=== PATIENT | male | born 1970 | race Caucasian/White ===

== ENCOUNTER 2016-07-22 08:42 | Observation (INO) | payer OTHER ==
[~2016-07-22] VITALS: Ht 175.3 cm; Wt 85.0 kg
[~2016-07-22 08:42] MED LIST: GABA600T PO; TRAZ100 PO
[2016-07-22 08:44] VITALS: BP 163/70; PULSE 78; RESP 17; TEMP 97.8; O2SAT 97
[2016-07-22] MEDS ORDERED: LISI40TA PO (10:18)
[2016-07-22] MEDS ORDERED: TRAZ300T2 PO (10:18)
[2016-07-22] MEDS ORDERED: BLOOD PRESSURE PO (10:18)
--- NOTE | 2016-07-22 10:20 | PD ---
HPI Chief Complaint: Abdominal Pain Time Seen by Provider: 10:13 Travel History International Travel<30 days: No Contact w/Intl Traveler<30days: No Traveled to known affect area: No History of Present Illness HPI This is a 46-year-old male who presents to the emergency department having woken up with lower abdominal burning described as constant, moderate severity, with no worsening or alleviating factors. He denies any associated vomiting, nausea, fevers, chills, dysuria, hematuria or diarrhea. He's never had pain like this before. He is otherwise pretty healthy. [facility] Past Medical History Narrative Medical Hypertension Hyperlipidemia Cardiovascular Problems: Yes Diminished Hearing: No Gout: Yes (L TOE) Hypertension: Yes Insomnia: Yes Immunizations Current: Yes Tetanus Vaccination: < 5 Years Influenza Vaccination: Yes Past Surgical History Other Surgery: Yes (HEMORRHOIDS) Family History Family Myocardial Infarction: Yes Social History Alcohol Use: Yes (OCCASIONAL) Tobacco Use: Yes (1/2 PPD) Substance Use: No Allergies-Medications (Allergen,Severity, Reaction): Coded Allergies: No Known Allergies (Verified , 12/23/14) Reported Meds & Prescriptions Reported Meds & Active Scripts Active Reported [Blood Pressure] 20 Mg PO DAILY Lisinopril 40 Mg Tab 40 Mg PO DAILY Trazodone (Trazodone HCl) 300 Mg Tab 300 Mg PO HS Physical Exam Narrative GENERAL:Well appearing, no acute distress SKIN: Warm and dry. HEAD: Atraumatic. Normocephalic. EYES: Pupils equal and round. No injection or drainage. ENT: Moist mucous membranes NECK: Trachea midline. CARDIOVASCULAR: Regular rate and rhythm. No murmur appreciated. RESPIRATORY: Clear to auscultation. Breath sounds equal bilaterally. GASTROINTESTINAL: Abdomen soft, tender to palpation in the suprapubic region and left lower quadrants with no rebound or guarding. MUSCULOSKELETAL: No obvious deformities. NEUROLOGICAL: Awake and alert. No obvious cranial nerve deficits. Moving all extremities. PSYCHIATRIC: Appropriate mood and affect; insight and judgment normal. Data Data Last Documented VS Vital Signs Date Time Temp Pulse Resp B/P Pulse Ox O2 Delivery O2 Flow Rate FiO2 07/22/16 13:47 68 20 131/61 97 07/22/16 08:44 97.8 Orders Complete Blood Count With Diff (07/22/16 10:18) Comprehensive Metabolic Panel (07/22/16 10:18) Lipase (07/22/16 10:18) Urinalysis - C+S If Indicated (07/22/16 10:18) Iv Access Insert/Monitor (07/22/16 10:18) Ecg Monitoring (07/22/16 10:18) Oximetry (07/22/16 10:18) Sodium Chloride 0.9% Flush (Ns Flush) (07/22/16 10:30) Ct Abd/Pel W Iv Contrast(Rout) (07/22/16 ) Morphine Inj (Morphine Inj) (07/22/16 12:00) Iohexol 350 Inj (Omnipaque 350 Inj) (07/22/16 12:31) Piperacil-Tazo 3.375 Gm Premix (Zosyn 3. (07/22/16 13:15) Morphine Inj (Morphine Inj) (07/22/16 14:00) Admit Order (Ed Use Only) (07/22/16 13:51) Labs Laboratory Tests Test 07/22/16 07/22/16 10:40 11:20 White Blood Count 14.6 TH/MM3 Red Blood Count 5.22 MIL/MM3 Hemoglobin 14.5 GM/DL Hematocrit 43.2 % Mean Corpuscular Volume 82.9 FL Mean Corpuscular Hemoglobin 27.8 PG Mean Corpuscular Hemoglobin 33.5 % Concent Red Cell Distribution Width 14.6 % Platelet Count 275 TH/MM3 Mean Platelet Volume 9.1 FL Neutrophils (%) (Auto) 72.1 % Lymphocytes (%) (Auto) 19.4 % Monocytes (%) (Auto) 5.5 % Eosinophils (%) (Auto) 2.2 % Basophils (%) (Auto) 0.8 % Neutrophils # (Auto) 10.5 TH/MM3 Lymphocytes # (Auto) 2.8 TH/MM3 Monocytes # (Auto) 0.8 TH/MM3 Eosinophils # (Auto) 0.3 TH/MM3 Basophils # (Auto) 0.1 TH/MM3 CBC Comment DIFF FINAL Differential Comment Sodium Level 136 MEQ/L Potassium Level 4.6 MEQ/L Chloride Level 105 MEQ/L Carbon Dioxide Level 23.5 MEQ/L Anion Gap 8 MEQ/L Blood Urea Nitrogen 19 MG/DL Creatinine 0.93 MG/DL Estimat Glomerular Filtration 87 ML/MIN Rate Random Glucose 121 MG/DL Calcium Level 9.1 MG/DL Total Bilirubin 0.3 MG/DL Aspartate Amino Transf 20 U/L (AST/SGOT) Alanine Aminotransferase 24 U/L (ALT/SGPT) Alkaline Phosphatase 76 U/L Total Protein 7.4 GM/DL Albumin 3.8 GM/DL Lipase 154 U/L Urine Color YELLOW Urine Turbidity CLEAR Urine pH 7.0 Urine Specific Muse 1.018 Urine Protein NEG mg/dL Urine Glucose (UA) NEG mg/dL Urine Ketones NEG mg/dL Urine Occult Blood NEG Urine Nitrite NEG Urine Bilirubin NEG Urine Urobilinogen LESS THAN 2.0 MG/DL Urine Leukocyte Esterase NEG Urine WBC LESS THAN 1 /hpf Urine Mucus FEW /lpf Microscopic Urinalysis Comment CULT NOT INDICATED MDM Medical Decision Making Medical Screen Exam Complete: Yes Emergency Medical Condition: Yes Interpretation(s) Leukocytosis with 72% neutrophils Electrolytes are reassuring Lipase is normal Urinalysis: No infection Last 24 hours Impressions Abdomen/Pelvis CT 07/22/16 0000 Signed Impressions: Service Date/Time: June 12:12 - CONCLUSION: Mildly dilated distal appendix. The appearance could reflect early appendicitis. Correlation recommended. Bro Valentin MD Differential Diagnosis Appendicitis, diverticulitis, urinary tract infection, prostatitis Narrative Course This is a 46-year-old male who presents to the emergency department with burning in the lower abdomen. He otherwise is afebrile, has no vomiting and no diarrhea. He is tender in the lower abdomen worse in the suprapubic region. Labs were obtained which demonstrated a leukocytosis of 14. CT demonstrates a dilated appendix. I suspect the patient does have early appendicitis. Patient will be admitted to general surgery. He was given a dose of Zosyn. Physician Communication Physician Communication Discussed with Dr. Jon Diagnosis Primary Impression: Acute appendicitis Qualified Code: K35.80 - Acute appendicitis, unspecified acute appendicitis type Admitting Information Admitting Physician Requests: Observation Twila Valencia MD Jul 22, 2016 10:20
[2016-07-22] MEDS ORDERED: SODIUM CHLORIDE 0.9% FLUSH 10 ML FLUSH IV FLUSH PRN ×3 (10:30→17:45)
[2016-07-22 11:13] LABS: AUTOMATED NEUTROPHIL # 10.5 TH/MM3 (1.8-7.7); BASOPHIL # 0.1 TH/MM3 (0-0.2); BASOPHIL % 0.8 % (0.0-2.0); EOSINOPHIL # 0.3 TH/MM3 (0-0.4); EOSINOPHIL % 2.2 % (0.0-4.0); HEMATOCRIT 43.2 % (39.0-51.0); HEMO FLAGS DIFF FINAL; LYMPH % 19.4 % (9.0-44.0); LYMPHOCYTE # 2.8 TH/MM3 (1.0-4.8); MEAN CELL VOLUME 82.9 FL (80.0-100.0); MEAN CORPUSCULAR HEMOGLOBIN 27.8 PG (27.0-34.0); MEAN CORPUSCULAR HGB CONC 33.5 % (32.0-36.0); MONO % 5.5 % (0.0-8.0); NEUT % 72.1 % (16.0-70.0); PLATELET COUNT 275 TH/MM3 (150-450); RED BLOOD COUNT 5.22 MIL/MM3 (4.50-5.90); RED CELL DISTRIBUTION WIDTH 14.6 % (11.6-17.2); WHITE BLOOD COUNT 14.6 TH/MM3 (4.0-11.0)
[2016-07-22 11:36] LABS: ALKALINE PHOSPHATASE 76 U/L (45-117); ALT (GPT) 24 U/L (12-78); ANION GAP 8 MEQ/L (5-15); AST (GOT) 20 U/L (15-37); BICARBONATE 23.5 MEQ/L (21.0-32.0); BLOOD UREA NITROGEN 19 MG/DL (7-18); CHLORIDE 105 MEQ/L (98-107); GLOMERULAR FILTRATION RATE 87 ML/MIN (>89); SODIUM (NA) 136 MEQ/L (136-145); TOTAL BILIRUBIN ADULT 0.3 MG/DL (0.2-1.0)
[2016-07-22 11:37] LABS: BLOOD, URINE NEG (NEG); COMMENT (UR) CULT NOT INDICATED; CULTURE IF INDICATED CULT NOT INDICATED; GLUCOSE,URINE NEG (NEG); KETONE, URINE NEG (NEG); MUCUS URINE FEW /lpf (OCC); NITRITE,URINE NEG (NEG); URINE COLOR YELLOW (YELLW/STRAW)
[2016-07-22 11:39] LABS: POTASSIUM 4.6 MEQ/L (3.5-5.1)
[2016-07-22] MEDS ORDERED: PROPOFOL 200 MG/20 ML AMP IV ONE (12:00)
[2016-07-22] MEDS ORDERED: NEOSTIGMINE 3 MG/3 ML SYR IV ONE (12:00)
[2016-07-22] MEDS ORDERED: MORPHINE SULFATE 4 MG/ML INJ IV PUSH ONE ×2 (12:00→14:00)
[2016-07-22] MEDS ORDERED: IOHEXOL 350 MG/ML 10 ML VIAL (for RAD DIAG) IV ONE (12:31)
--- NOTE | 2016-07-22 13:08 | RADRPT ---
EXAM DATE/TIME: 07/22/2016 12:12 [place] COMPARISON: No previous studies available for comparison. INDICATIONS : Burning pain mid abdomen. IV CONTRAST: 75 cc Omnipaque 350 (iohexol) IV ORAL CONTRAST: No oral contrast ingested. RADIATION DOSE: 15.33 CTDIvol (mGy) MEDICAL HISTORY : Cardiovascular disease. Hypertension. hemorrhoids SURGICAL HISTORY : None. ENCOUNTER: Initial ACUITY: 1 day PAIN SCALE: 7/10 LOCATION: Abdomen TECHNIQUE: Volumetric scanning of the abdomen and pelvis was performed. Using automated exposure control and ad justment of the mA and/or kV according to patient size, radiation dose was kept as low as reasonably achievable to obtain optimal diagnostic quality images. FINDINGS: LOWER LUNGS: Mild posterior lung base atelectasis. LIVER: Homogeneous density without lesion. There is no dilation of the biliary tree. No calcified gallston es. SPLEEN: Normal size without lesion. PANCREAS: Within normal limits. KIDNEYS: Tiny lower pole left renal cysts. No evidence of suspicious mass, stone or hydronephrosis. ADRENAL GLANDS: Within normal limits. VASCULAR: There is no aortic aneurysm. BOWEL/MESENTERY: The appendix coils into the central pelvis. The distal appendix is dilated to slightly greater than 1 0 mm. There is no significant surrounding inflammatory change at present. The bowel is elsewhere unre markable. ABDOMINAL WALL: Within normal limits. RETROPERITONEUM: There is no lymphadenopathy. BLADDER: No wall thickening or mass. REPRODUCTIVE: Within normal limits. INGUINAL: There is no lymphadenopathy or hernia. MUSCULOSKELETAL: Within normal limits for patient age. CONCLUSION: Mildly dilated distal appendix. The appearance could reflect early appendicitis. Correlation recommen ded. Bro Valentin MD on July 22, 2016 at 13:00 Board Certified Radiologist. This report was verified electronically.
[2016-07-22] MEDS ORDERED: PIPERACIL-TAZO 3.375 GM PREMIX 50 ML IV ONE (13:15)
[2016-07-22 13:47] VITALS: BP 131/61; PULSE 68; RESP 20; O2SAT 97
[2016-07-22] MEDS ORDERED: SODIUM CHLOR 0.9% 1000 ML INJ 1,000 ML IV SCH (15:20)
[2016-07-22] MEDS ORDERED: BUPIVACAINE/EPINEPHRINE 0.5% PF 30 ML VIAL ONE (15:55)
[2016-07-22] MEDS ORDERED: ACETAMINOPHEN 1000 MG/100 ML VIAL IV ONE (16:25)
[2016-07-22] MEDS ORDERED: FAMOTIDINE 20 MG/2 ML VIAL ONE (16:25)
[2016-07-22] MEDS ORDERED: fentaNYL CITRATE 250 MCG/5 ML AMP ONE (16:25)
[2016-07-22] MEDS ORDERED: MIDAZOLAM HCL 2 MG/2 ML VIAL ONE (16:25)
[2016-07-22] MEDS: SODIUM CHLOR 0.9% 1000 ML INJ 1,000 ML IV SCH (17:37)
[2016-07-22] MEDS ORDERED: PERC5TAB12 PO (17:41)
[2016-07-22] MEDS ORDERED: Post-op Orders (for Pharmacy) MISC XX ONE (17:45)
[2016-07-22] MEDS ORDERED: ACETAMINOPHEN/HYDROcodone 325 MG/5 MG TAB PO PRN (17:45)
[2016-07-22] MEDS ORDERED: METOCLOPRAMIDE HCL 10 MG/2 ML VIAL IVS PRN (17:45)
[2016-07-22] MEDS ORDERED: ONDANSETRON HCL 4 MG/2 ML VIAL IV PRN (17:45)
[2016-07-22] MEDS ORDERED: *morphine SULFATE 8 MG/ML PERIprocedure ONLY ONE (18:20)
[2016-07-22] MEDS: NICOTINE 14 MG/24 HR PATCH TD SCH (19:36)
[2016-07-22] MEDS: MORPHINE SULFATE 4 MG/ML INJ IV PRN (19:36)
[2016-07-22] MEDS: SODIUM CHLORIDE 0.9% FLUSH 10 ML FLUSH IV FLUSH SCH (19:43)
[2016-07-22 20:15] VITALS: BP 139/69; PULSE 80; RESP 18; TEMP 95.9; O2SAT 97
[2016-07-22] MEDS ORDERED: SODIUM CHLORIDE 0.9% FLUSH 10 ML FLUSH IV FLUSH SCH (21:00)
[2016-07-22] MEDS ORDERED: REMOVE OLD NICODERM (NICOTINE) PATCH TD SCH (21:00)
[2016-07-22] MEDS ORDERED: traZODone HCL 100 MG TAB PO SCH (21:00)
[2016-07-23] MEDS: MORPHINE SULFATE 4 MG/ML INJ IV PRN (00:24)
[2016-07-23] MEDS: PIPERACIL-TAZO 3.375 GM PREMIX 50 ML IV SCH ×2 (00:24→06:28)
[2016-07-23 00:27] VITALS: BP 102/52; PULSE 59; RESP 17; TEMP 97; O2SAT 94
[2016-07-23] MEDS: SODIUM CHLOR 0.9% 1000 ML INJ 1,000 ML IV SCH (00:28)
[2016-07-23 00:32] VITALS: O2SAT 98
[2016-07-23] MEDS: ACETAMINOPHEN/HYDROcodone 325 MG/5 MG TAB PO PRN ×2 (04:15→08:12)
[2016-07-23 08:00] VITALS: BP 117/67; PULSE 55; RESP 17; TEMP 96.9; O2SAT 98
[2016-07-23] MEDS: NICOTINE 14 MG/24 HR PATCH TD SCH (08:15)
[2016-07-23] MEDS: SODIUM CHLORIDE 0.9% FLUSH 10 ML FLUSH IV FLUSH SCH (08:17)
[2016-07-23] MEDS ORDERED: LISINOPRIL 20 MG TAB PO SCH (09:00)
--- NOTE | 2016-07-23 09:32 | MH ---
cc: NIMA STARKS DATE OF ADMISSION 07/22/2016 DATE OF 1970 HISTORY This is a 46-year-old male who presented to the emergency room with a complaint of abdominal pain. The pain was located in the lower abdomen. No nausea or vomiting. No fevers or chills. No change in bowel movements. No urinary symptoms. PAST MEDICAL HISTORY The patient has a past medical history significant for: 1. Hyperlipidemia 2. Hypertension MEDICATIONS He is on medications at home that include: 1. Lisinopril 2. Unsure of his cholesterol medication 3. Trazodone PAST SURGICAL HISTORY Significant for hemorrhoidectomy. SOCIAL HISTORY He smokes a half-a-pack of cigarettes a day and drinks alcohol occasionally. FAMILY HISTORY Noncontributory ALLERGIES No known drug allergies. REVIEW OF SYSTEMS Significant for above. All other 10-point review negative. PHYSICAL EXAM On exam, the patient is the patient is laying on a stretcher in no acute distress. HEAD, EYES, EARS, NOSE, AND THROAT: His pupils are equal and reactive. Trachea is midline. NECK: Without JVD. RESPIRATORY: Clear. CARDIOVASCULAR: Regular. GASTROINTESTINAL: Soft, positive tenderness in the lower abdomen, greatest in the right lower quadrant. MUSCULOSKELETAL: No deformities. NEUROLOGIC: Nonfocal. LABORATORY DATA The patient's white blood cell count is 14.6. His CT scan of his abdomen and pelvis revealed a dilated appendix. ASSESSMENT This is a 46-year-old male with acute appendicitis. PLAN The plan will be to take him to the operating room for a laparoscopic appendectomy. The risks and benefits explained to include, but not be exclusive to infection, bleeding, bowel injury, bladder injury, ureter injury, technical aspects explained, as well as kasandra and postoperative course. The patient verbalized understanding and consent was obtained. MD JANICE Grissom/SHILPI /4:38 AM /9:24 AM
--- NOTE | 2016-07-26 22:18 | MP ---
cc: STEVE COLEMAN DATE OF SURGERY 07/22/2016 DATE OF 1970 PREOPERATIVE DIAGNOSIS Acute appendicitis. POSTOPERATIVE DIAGNOSIS Acute appendicitis. PROCEDURE Laparoscopic appendectomy. SURGEON Steve Coleman MD ANESTHESIA General endotracheal anesthesia. ESTIMATED BLOOD LOSS Scant. FINDINGS Inflamed appendix. SPECIMEN Appendix. COMPLICATIONS None. OPERATION The patient was brought to the operating room, placed on the operating table in supine position. Bilateral sequential inflation devices were placed on lower extremities. General anesthesia instituted. The abdomen was prepped and draped sterilely. A point in the infraumbilical area anesthetized with 0.25% Marcaine with epinephrine. Skin incision was made and a 5 mm Optivu port placed under direct vision and pneumoperitoneum created. On direct vision a 5 mm suprapubic port and a 12-mm left lower quadrant port were placed. Prior to placement of all ports the skin and peritoneum were anesthetized with 0.25% Marcaine with epinephrine. The patient was placed in Trendelenburg position right side up. The appendix was visualized and brought into view. The mesoappendix was using the harmonic scalpel. The appendix was then amputated at its base using an endovascular stapler. The appendix was retrieved from the peritoneal cavity in an Endopouch through the 12 mm port site. The pelvis was then irrigated with copious amounts of saline. The staple line was inspected, appeared to be intact. CO2 was released, all ports removed. All skin incisions were closed with 4-0 Monocryl. The abdominal wall was cleaned and a sterile dressing placed. The patient was awakened and taken to recovery room. MD JANICE Grissom/JOYCE /4:41 AM /10:14 PM
== END 2016-07-23 10:04 | disposition home or self-care (01) ==
LOC: NEPB 08:42 → NEDA 13:52 → N07B 19:25
PROVIDERS: ADMIT Surgery; ATTEND Surgery
DX: K35.80 Unspecified acute appendicitis (principal); E78.5 Hyperlipidemia, unspecified; I10 Essential (primary) hypertension; G47.00 Insomnia, unspecified; M10.9 Gout, unspecified; F17.210 Nicotine dependence, cigarettes, uncomplicated
CPT/HCPCS: 74177; 80053; 81001; 83690; 85025; 88304; 96374; 96375; G0378; J0131; J2250; J2270; J2543; J2710; J3010; J7030; Q9967